=== PATIENT | male | born 2000 | race Caucasian/White ===

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

== ENCOUNTER 2020-04-20 14:37 | Emergency (ER) | payer MEDICAID ==
[~2020-04-20] VITALS: Ht 188 cm; Wt 98.5 kg
[2020-04-20 14:57] VITALS: BP 134/83
[2020-04-20 15:39] LABS: BASOPHILS % (AUTO) 0 % (0-1); EOSINOPHILS % (AUTO) 2 % (1-7); LYMPHOCYTES % (AUTO) 20 % (22-44); MEAN CORPUSCULAR HEMOGLOBIN 30.8 pg (27.5-34.5); MEAN CORPUSCULAR HGB CONC 34.7 g/dL (33.2-36.2); MONOCYTES % (AUTO) 8 % (2-9); NEUTROPHILS % (AUTO) 70 % (42-75); PLATELET COUNT 204 x10^3/uL (130-400); RED CELL DISTRIBUTION WIDTH 13.4 % (9.4-14.8)
[2020-04-20 15:41] LABS: MD NO
[2020-04-20 15:42] LABS: ALBUMIN 4.4 g/dL (3.4-5.0); ANION GAP 4 mmol/L (5-15); CALCIUM 9.1 mg/dL (8.5-10.1); CHLORIDE 110 mmol/L (98-107)
[2020-04-20 15:45] LABS: ALANINE AMINOTRANSFERASE 43 U/L (12-78); ALKALINE PHOSPHATASE 134 U/L (45-117); BILIRUBIN,TOTAL 0.7 mg/dL (0.2-1.0); CREATININE 0.99 mg/dL (0.7-1.3); SALICYLATE LEVEL 1.9 mg/dL (2.8-20.0); TOTAL PROTEIN 7.7 g/dL (6.4-8.2)
--- NOTE | 2020-04-20 15:45 | NUR ---
REPORT GIVEN TO [facility]
--- NOTE | 2020-04-20 16:34 | NUR ---
Patient/Caregiver given discharge instructions and they have confirmed that they understand the instructions. Patient ambulatory with steady gait. PT TO 3E WITH TECH
[2020-04-20] MEDS ORDERED: ARIP30TA4 PO (18:14)
[2020-04-20] MEDS ORDERED: HYDR50CA PO (18:14)
== END 2020-04-20 16:36 ==
LOC: ED 15:33
DX: R45.851 Suicidal ideations (principal); Z20.828 Contact with and (suspected) exposure to other viral communicable diseases; F17.210 Nicotine dependence, cigarettes, uncomplicated; J45.909 Unspecified asthma, uncomplicated
CPT/HCPCS: 36415; 80053; 80299; 80320; 80329; 85025; 87635; 99284; 99406; U0003; G0480

== ENCOUNTER 2020-04-20 16:59 | Inpatient (IN) | payer MEDICAID ==
[~2020-04-20] VITALS: Ht 188 cm; Wt 93.2 kg
[2020-04-20] MEDS ORDERED: ONDANSETRON ODT 4 MG PO PRN (17:30)
[2020-04-20] MEDS ORDERED: PLEASE ENTER HEIGHT AND WEIGHT MC SCH (17:30)
[2020-04-20] MEDS ORDERED: DOCUSATE 100 MG CAPSULE PO PRN (17:30)
[2020-04-20] MEDS ORDERED: ACETAMINOPHEN 325 MG TABLET PO PRN (17:30)
[2020-04-20] MEDS ORDERED: POLYETHYLENE GLYCOL 17 GM PACKET PO PRN (17:30)
[2020-04-20] MEDS ORDERED: HYDR50CA PO (18:14)
[2020-04-20] MEDS ORDERED: ARIP30TA4 PO (18:14)
[2020-04-20 18:17] VITALS: BP 120/78
[2020-04-20 19:35] VITALS: BP 134/86
[2020-04-20 19:43] LABS: MICROSCOPIC NOT IND
[2020-04-20] MEDS ORDERED: hydrOXyzine 50MG TABLET PO PRN (20:00)
[2020-04-20 20:01] LABS: AMPHETAMINE SCREEN, URINE Negative (Negative); BARBITURATE SCREEN, URINE Negative (Negative); BENZODIAZEPINE SCREEN, URINE Negative (Negative); CANNABINOID SCREEN, URINE Positive (Negative); COCAINE SCREEN, URINE Negative (Negative); METHADONE SCREEN, URINE Negative (Negative); OPIATE SCREEN, URINE Negative (Negative)
[2020-04-20] MEDS: ARIPIPRAZOLE 15 MG TABLET PO SCH (20:59)
[2020-04-20] MEDS: LORazepam 1MG TABLET PO PRN (20:59)
[2020-04-21 06:31] LABS: CHOL/HDL RATIO 3.2; FREE T4 (FREE THYROXINE) 1.18 ng/dL (0.76-1.46); LDL/HDL RATIO 1.7 (0.5-3.0)
[2020-04-21] MEDS: NICOTINE 7 MG/24 HR PATCH.TD24 TD SCH (08:43)
[2020-04-21] MEDS: ARIPIPRAZOLE 15 MG TABLET PO SCH ×2 (08:43→20:04)
[2020-04-21] MEDS ORDERED: ALBUTEROL HFA 90 MCG/SPRAY INH PRN (09:00)
[2020-04-21 11:15] VITALS: BP 130/77
[2020-04-21] MEDS: HALOPERIDOL 1 MG TABLET PO SCH ×2 (12:41→20:04)
[2020-04-21 19:28] VITALS: BP 132/86
[2020-04-21] MEDS: LORazepam 1MG TABLET PO PRN (20:04)
[2020-04-21] MEDS: CARBAMAZEPINE 200 MG TABLET PO SCH (20:04)
[2020-04-22 07:24] VITALS: BP 136/61
[2020-04-22] MEDS: CARBAMAZEPINE 200 MG TABLET PO SCH ×2 (08:11→20:58)
[2020-04-22] MEDS: HALOPERIDOL 1 MG TABLET PO SCH ×2 (08:11→20:59)
[2020-04-22] MEDS: NICOTINE 7 MG/24 HR PATCH.TD24 TD SCH (08:11)
[2020-04-22] MEDS: ARIPIPRAZOLE 15 MG TABLET PO SCH ×2 (08:12→20:58)
[2020-04-22 19:08] VITALS: BP 129/84
[2020-04-23 07:00] VITALS: BP 126/76
[2020-04-23] MEDS: NICOTINE 7 MG/24 HR PATCH.TD24 TD SCH (08:02)
[2020-04-23] MEDS: HALOPERIDOL 1 MG TABLET PO SCH ×2 (08:03→20:15)
[2020-04-23] MEDS: ARIPIPRAZOLE 15 MG TABLET PO SCH ×2 (08:03→20:15)
[2020-04-23] MEDS: CARBAMAZEPINE 200 MG TABLET PO SCH ×2 (08:03→20:15)
[2020-04-23 19:30] VITALS: BP 129/89
[2020-04-24 07:28] VITALS: BP 125/76
[2020-04-24] MEDS: HALOPERIDOL 1 MG TABLET PO SCH ×2 (08:49→20:30)
[2020-04-24] MEDS: ARIPIPRAZOLE 15 MG TABLET PO SCH ×2 (08:49→20:29)
[2020-04-24] MEDS: CARBAMAZEPINE 200 MG TABLET PO SCH ×2 (08:49→20:29)
[2020-04-24] MEDS: NICOTINE 7 MG/24 HR PATCH.TD24 TD SCH (08:52)
[2020-04-24] MEDS ORDERED: CARB200T4 PO (13:02)
[2020-04-24] MEDS ORDERED: ARIP15TA3 PO (13:02)
[2020-04-24] MEDS ORDERED: HALO1TAB PO (13:02)
[2020-04-24] MEDS ORDERED: ALBU18HF INH (13:02)
[2020-04-24] MEDS ORDERED: NICO-485 TD (13:02)
[2020-04-24] MEDS ORDERED: HYDR50TA99 PO (13:02)
[2020-04-24 19:15] VITALS: BP 128/82
[2020-04-25 07:27] VITALS: BP 122/80
[2020-04-25] MEDS: ARIPIPRAZOLE 15 MG TABLET PO SCH (08:38)
[2020-04-25] MEDS: HALOPERIDOL 1 MG TABLET PO SCH (08:39)
[2020-04-25] MEDS: CARBAMAZEPINE 200 MG TABLET PO SCH (08:39)
[2020-04-25] MEDS: NICOTINE 7 MG/24 HR PATCH.TD24 TD SCH (08:41)
== END 2020-04-25 13:15 | disposition home or self-care (01) | DRG 750 ==
LOC: UNDOADMIN 16:59 → 3E 16:59
PROVIDERS: ADMIT Psychiatry & Neurology Psychosomatic Medicine; ATTEND Psychiatry & Neurology Psychosomatic Medicine
DX: F25.0 Schizoaffective disorder, bipolar type (principal); E66.9 Obesity, unspecified; F10.10 Alcohol abuse, uncomplicated; F12.10 Cannabis abuse, uncomplicated; J45.909 Unspecified asthma, uncomplicated; R45.851 Suicidal ideations; Z68.26 Body mass index [BMI] 26.0-26.9, adult; Z72.0 Tobacco use; Z71.6 Tobacco abuse counseling; Z79.899 Other long term (current) drug therapy; Z83.3 Family history of diabetes mellitus; Z91.5 Personal history of self-harm
CPT/HCPCS: 36415; 71045; 80053; 80061; 80299; 80307; 80320; 80329; 81003; 82607; 84439; 84443; 85025; 87635; 93005; 99284; 99406; G0480; U0003